=== PATIENT | male | born 1985 | race Caucasian/White ===

== ENCOUNTER 2017-01-30 12:16 | Emergency (ER) | payer OTHER ==
[2017-01-30 12:22] VITALS: BP 116/72; RESP 18; TEMP 98.8
--- NOTE | 2017-01-30 12:43 | ED ---
Lower Extremity Injury HPI - General Chief Complaint: Extremity Injury, Lower Stated Complaint: Right Foot Injury Time Seen by Provider: 01/30/17 12:33 Source: patient Mode of arrival: ambulatory Limitations: no limitations - History of Present Illness Initial Comments: 31-year-old male patient presented to emergency department today for complaints of right foot pain. Patient states he was playing wiffle ball on Monday, he jumped to get the ball, and landed with his foot inverted. Patient states he's been having significant pain to the area since then. Patient states that the pain is worse when he is walking. States the area is swollen. He denies any numbness or tingling to his foot. States that he did fall to the ground due to the pain however he denies hitting his head or losing consciousness. Denies any other injuries. Denies any ankle pain or limitations in ankle range of motion. Patient denies any headache, neck pain, back pain, chest pain, shortness of breath, dizziness, weakness, abdominal pain, nausea, vomiting, or difficulties with bowel movements or urination. - Related Data Allergies Allergy/AdvReac Type Severity Reaction Status Date / Time No Known Allergies Allergy Verified 01/30/17 12:22 Review of Systems ROS Statement: Those systems with pertinent positive or pertinent negative responses have been documented in the HPI. ROS Other: All systems not noted in ROS Statement are negative. Past Medical History Past Medical History: No Reported History History of Any Multi-Drug Resistant Organisms: None Reported Past Surgical History: No Surgical Hx Reported Past Psychological History: No Psychological Hx Reported Smoking Status: Current every day smoker Past Alcohol Use History: Rare Past Drug Use History: None Reported General Exam Limitations: no limitations General appearance: alert, in no apparent distress Head exam: Present: atraumatic, normocephalic, normal inspection Eye exam: Present: normal appearance, PERRL, EOMI. Absent: scleral icterus, conjunctival injection, periorbital swelling Respiratory exam: Present: normal lung sounds bilaterally. Absent: respiratory distress, wheezes, rales, rhonchi, stridor Cardiovascular Exam: Present: regular rate, normal rhythm, normal heart sounds. Absent: systolic murmur, diastolic murmur, rubs, gallop, clicks Extremities exam: Present: full ROM, tenderness (Tenderness to palpation over the dorsal aspect of the foot not including the toes.), normal capillary refill , other (Right foot swelling, ecchymosis, warmth. Otherwise skin is pink, warm , and dry. Cap refill is less than 3 seconds. Patient able to move the toes, but reports pain with movement.). Absent: normal inspection, pedal edema, joint swelling, calf tenderness Neurological exam: Present: alert, oriented X3, CN II-XII intact Psychiatric exam: Present: normal affect, normal mood Skin exam: Present: warm, dry, intact, normal color. Absent: rash Course Vital Signs 01/30/17 12:20 Temperature 98.8 F Pulse Rate 107 H Respiratory 18 Rate Blood Pressure 116/72 O2 Sat by Pulse 97 Oximetry Medical Decision Making - Medical Decision Making 31-year-old male patient presented for evaluation of right foot pain. X-ray was obtained and showed no acute fracture or dislocation. With swelling and discomfort is likely patient has a significant sprain. Patient placed in Joey wrap and given a prescription for crutches. Patient instructed to be nonweightbearing for one week. Did instruct him to follow up with orthopedics for reevaluation at that time if still having symptoms. Patient does not have a primary care physician, did recommend he establish with one for recheck in 1- 2 days. Instructed to return immediately for any new, worsening, or concerning symptoms. Patient verbalized understanding and agreed with this plan. - Radiology Data Radiology results: report reviewed, image reviewed 3 views of the right foot are obtained and show the osseous structures are intact and arthropathy first MTP joint. There is no acute fracture or dislocation. Tiny plantar calcaneal spur. Impression by Dr. Jarquin shows no acute fracture or dislocation. Symptoms persist, follow-up exam in 7 tenderness could be obtained. Disposition Clinical Impression: Right foot sprain Disposition: HOME SELF-CARE Condition: Good Instructions: Foot Sprain (ED) Additional Instructions: Keep Joey wrap on for comfort and support. Use crutches as needed. Follow up for repeat x-ray in 7-10 days if pain symptoms persist. Follow-up with primary care physician for recheck in 1-2 days. Return immediately for any new, worsening, or concerning symptoms. Referrals: None,Stated [Primary Care Provider] - 1-2 days Reji Carrasco MD [STAFF PHYSICIAN] - 1-2 days Time of Disposition: 13:12
--- NOTE | 2017-01-30 13:05 | XR ---
EXAMINATION TYPE: XR foot complete RT DATE OF EXAM: 01/30/2017 COMPARISON: NONE HISTORY: Pain TECHNIQUE: Three views are submitted. FINDINGS: The osseous structures are intact and arthropathy first MTP joint. There is no acute fracture or dis location. Tiny plantar calcaneal spur. IMPRESSION: 1. No acute fracture or dislocation. If symptoms persist, follow-up exam in 7 to 10 days could be ob tained.
[2017-01-30 13:24] VITALS: PULSE 69
== END 2017-01-30 13:24 | disposition home or self-care (01) ==
LOC: EC 12:16
DX: S93.601A Unspecified sprain of right foot, initial encounter (principal); M77.31 Calcaneal spur, right foot; F17.200 Nicotine dependence, unspecified, uncomplicated; X50.9XXA Other and unspecified overexertion or strenuous movements or postures, initial encounter; Y93.64 Activity, baseball; Y92.89 Other specified places as the place of occurrence of the external cause
CPT/HCPCS: 99283

== ENCOUNTER → 2021-01-15 | Outpatient (CLI) | payer MEDICAID | END | disposition home or self-care (01) | LOC: LABWHC1 12:00 | PROVIDERS: ATTEND Emergency Medicine | DX: Z20.822 Contact with and (suspected) exposure to COVID-19 (principal) | CPT/HCPCS: 87635 ==

== ENCOUNTER → 2021-01-18 | Outpatient (CLI) | payer MEDICAID | END | disposition home or self-care (01) | LOC: LABWHC1 09:21 | PROVIDERS: ATTEND Emergency Medicine | DX: Z20.822 Contact with and (suspected) exposure to COVID-19 (principal) | CPT/HCPCS: 87635 ==

== ENCOUNTER → 2021-11-25 | Outpatient (CLI) | payer MEDICAID ==
[2021-11-25 14:58] LABS: HCT 48.4 % (39.6-50.0); MCH 30.6 pg (27.0-32.0); MCHC 33.1 g/dL (32.0-37.0); MCV 92.5 fL (80.0-97.0); Mean Platelet Volume 10.7 fL (9.5-12.2); NRBC Per 100 WBC 0 /100 WBCS (0.0-0.0); Platelet Count 262 X 10*3/uL (140-440); RBC 5.23 X 10*6/uL (4.40-5.60); RDW 12.7 % (11.5-14.5); WBC 7.44 X 10*3/uL (4.50-10.00)
[2021-11-25 15:54] LABS: ALT 24 U/L (10-49); AST 17 U/L (14-35); African American GFR (CKD) 128.5 (60.0-200.0); Albumin 4.6 g/dL (3.8-4.9); Albumin/Globulin Ratio 2.06 (1.60-3.17); Alkaline Phosphatase 60 U/L (41-126); BUN/Creat Ratio 15.09 Ratio (12.00-20.00); Blood Urea Nitrogen 13.4 mg/dL (9.0-27.0); Carbon Dioxide 22.4 mmol/L (20.0-27.5); Chloride 106 mmol/L (96-109); Chol/HDL Ratio 3.86 Ratio; Globulin 2.2 g/dL (1.6-3.3); Glucose 120 mg/dL (70-110); LDL Cholesterol,Calculated 108.6 mg/dL (0.0-131.0); Non-African American GFR(CKD) 110.9 (60.0-200.0); Potassium 4.2 mmol/L (3.5-5.5); Sodium 140 mmol/L (135-145); Total Protein 6.8 g/dL (6.2-8.2)
== END | disposition home or self-care (01) ==
LOC: LABWHC1 09:32
PROVIDERS: ATTEND Family Medicine
DX: F41.1 Generalized anxiety disorder (principal)
CPT/HCPCS: 36415; 80053; 80061; 84443; 85027